=== PATIENT | female | born 2000 ===

== ENCOUNTER → 2021-07-05 | Outpatient (REF) | payer OTHER | LOC: M PLALAB 14:32 | PROVIDERS: ATTEND Specialist | DX: Z01.419 Encounter for gynecological examination (general) (routine) without abnormal findings (principal); Z53.9 Procedure and treatment not carried out, unspecified reason ==

== ENCOUNTER → 2021-10-24 | Outpatient (REF) | payer OTHER ==
[2021-10-24 15:45] LABS: GC DNA AMPLIFICATION NEGATIVE (NEGATIVE)
== END ==
LOC: M LAB REF 12:34
PROVIDERS: ATTEND Physician Assistant Medical
DX: R30.0 Dysuria (principal)